=== PATIENT | male | born 1975 | race Two or more races ===

== ENCOUNTER 2021-03-30 08:43 | Emergency (ER) | payer BC ==
[~2021-03-30] VITALS: Ht 180.3 cm; Wt 187.0 kg
[~2021-03-30 08:43] MED LIST: AMOX1TAB61 PO; ASPI-889 PO; ATOR20TA58 PO; AZIT250T6 PO; FURO40TA4 PO; LISI1TAB37 PO; METO25TA4 PO
--- NOTE | 2021-03-30 09:38 | RAD ---
EXAM: CHEST 1 VIEW History: Cough COMPARISON: 02/26/2021 TECHNIQUE: Single portable radiograph of the chest Findings/impression Low lung volumes and technique accentuates heart size and pulmonary vascularity. Moderate cardiomegal y. Mild prominent appearing bilateral interstitial lung markings likely congestive changes similar to prior exam. Patchy bibasilar lung airspace opacity likely atelectasis or infiltrates. Electronically signed by: Jean-Pierre Nguyen MD (03/30/2021 9:36 AM) [id number]
--- NOTE | 2021-03-30 10:18 | PHYS DOC ---
Past History Past Medical History: No Pertinent History Additional Past Medical Histor: CHF POSSIBLY, PER PT Past Surgical History: No Surgical History Alcohol Use: None Adult General Chief Complaint Chief Complaint: COUGH HPI HPI Patient is a 45-year-old male presenting for URI symptoms. Onset was approximately 3 days prior to arrival. Nothing known makes better or worse. He is not vaccinated against COVID-19. Denies fever Review of Systems Review of Systems Fourteen body systems of review of systems have been reviewed. See HPI for pertinent positives and negative responses, other ponce all other systems are negative, non-pertinent or non-contributory Allergies Allergies Allergies Coded Allergies Type Severity Reaction Last Updated Verified No Known Drug Allergies 03/30/21 No Physical Exam Physical Exam General: Appears well, non toxic, and comfortable Skin: Warm, dry. Normal for ethnicity. HEENT: Atraumatic. PERRLA. Rhinorrhea and congestion. Nasal turbinates boggy b/l. Moist mucous membranes. Uvula midline. Maintaining secretions. No phonation changes. Neck: Trachea midline. Normal ROM. No stridor. Respiratory: Normal WOB. CTAB w/o w/r/r. No tachypnea. Cardiovascular: Regular rate and rhythm. Normal peripheral perfusion. Abdomen: Soft. Non tender. No distension. Back: Normal ROM. Musculoskeletal: No swelling or deformity. Neuro: Alert and oriented x 4. MAEE. Lymph: No cervical LAD. Psych: Normal affect and mood. Current Patient Data Vital Signs Vital Signs Date Time Temp Pulse Resp B/P (MAP) Pulse Ox O2 Delivery O2 Flow Rate FiO2 03/30/21 08:45 97.8 78 20 124/73 99 Room Air EKG EKG EKG ordered and interpreted by myself at 0900 hrs. as sinus rhythm at 74 bpm, unremarkable intervals, no axis deviation, no acute ischemic findings, no STEMI Repeat EKG ordered and interpreted by myself at 0950 hrs. as sinus rhythm at 78 bpm, unremarkable intervals, no axis deviation, x2 PVCs seen, no acute ischemic findings, no STEMI Radiology/Procedures Radiology/Procedures EXAM: CHEST 1 VIEW History: Cough COMPARISON: 02/26/2021 TECHNIQUE: Single portable radiograph of the chest Findings/impression Low lung volumes and technique accentuates heart size and pulmonary vascularity. Moderate cardiomegaly. Mild prominent appearing bilateral interstitial lung markings likely congestive changes similar to prior exam. Patchy bibasilar lung airspace opacity likely atelectasis or infiltrates. Electronically signed by: Jean-Pierre Nguyen MD (03/30/2021 9:36 AM) [id number] Heart Score C/O Chest Pain: No Risk Factors: Risk Factors: DM, Current or recent (<one month) smoker, HTN, HLP, family history of CAD, obesity. Risk Scores: Risk Factors: DM, Current or recent (<one month) smoker, HTN, HLP, family history of CAD, obesity. Course & Med Decision Making Course & Med Decision Making ABCs unremarkable. I disclosed entirety of ER findings and discussed most likely diagnosis of viral syndrome, cannot exclude COVID-19 infection in an unvaccinated individual and so patient was swabbed. Other diagnoses were discussed with patient such as ACS, pneumonia, pneumothorax and other potentially life-threatening diagnoses but all deemed less likely causes of patient's presentation. Plan of care discussed at length with need for close outpatient follow-up to review today's ER visit stressed. Strict return precautions were also discussed at length with good understanding verbalized by patient. Patient voiced understanding and agreement with the plan. Patient knows to come back for repeat evaluation if concerning signs or symptoms present prior to outpatient follow-up. Hemodynamically stable, ambulatory and well-appearing at time of disposition. Dragon Disclaimer Dragon Disclaimer This electronic medical record was generated, in whole or in part, using a voice recognition dictation system. Departure Departure: Impression: Primary Impression: Cough Additional Impressions: Chest pain, unspecified Person under investigation for COVID-19 Disposition: HOME / SELF CARE / HOMELESS Condition: STABLE Referrals: OBI RIVERA MD (PCP) Additional Instructions: You were seen for chronic chest pain, cough, and possible infection with COVID- 19. Your physical exam was reassuring. Your chest x-ray was nonconcerning for any emergent or surgical issues as were your x2 EKGs. We tested you for COVID-19 but this test does not come back for 1 to 2 days. In the meantime you need to quarantine yourself at home away from all other individuals, especially those who are elderly or have any other chronic health issues or an immunocompromised status. You should return to the ED if you develop worsening cough, shortness of breath, chest pain, or any other new or concerning symptoms. Alternate Tylenol and ibuprofen as needed for body aches and pain. If your test does come back positive you need to quarantine yourself for 10 days until symptom-free. You should make sure to drink plenty of fluids and get plenty of rest. Please contact your assistant food service manager immediately after ER visit to review visit today and need for close outpatient follow-up to reschedule your stress test Problem Qualifiers SUE OVIEDO DO Mar 30, 2021 10:17
[2021-03-30 10:29] VITALS: BP 130/62
--- NOTE | 2021-03-30 12:55 | EKG ---
[address] [address] Test Date: 2021-03-30 Test Time: 09:37:54 Pat Name: TABBY VALDEZ Department: Room: Gender: M Pick Pack Worker: : 1975 Requested By: SUE OVIEDO Order Number: [id number] Reading MD: Measurements Intervals [place] Rate: 78 P: 50 MS: 168 QRS: 56 QRSD: 94 T: 59 QT: 374 QTc: 430 Interpretive Statements SINUS RHYTHM VENTRICULAR PREMATURE COMPLEX(ES) ATRIAL PREMATURE COMPLEX(ES) ABNORMAL ECG RI6.02 No previous ECG available for comparison
--- NOTE | 2021-03-30 12:56 | EKG ---
[address] [address] Test Date: 2021-03-30 Test Time: 08:50:13 Pat Name: TABBY VALDEZ Department: Room: Gender: M Patent Legal Assistant: : 1975 Requested By: SUE OVIEDO Order Number: [id number] Reading MD: Measurements Intervals [place] Rate: 74 P: 30 NH: 162 QRS: 49 QRSD: 90 T: 62 QT: 360 QTc: 400 Interpretive Statements SINUS RHYTHM NORMAL ECG RI6.02 No previous ECG available for comparison
--- NOTE | 2021-03-30 23:44 | NUR ---
CALLED PT AT 1999 TO TELL PT HE IS POSTIVE FOR COVID AND TO QUARTINTINE FOR 14 DAYS.
== END 2021-03-30 10:58 | disposition home or self-care (01) ==
LOC: ER 08:45 → MERGE 08:45 → ER 10:58
DX: U07.1 COVID-19 (principal); R07.89 Other chest pain
CPT/HCPCS: 71045; 93005; 99285; C9803; U0003

== ENCOUNTER 2021-08-25 18:34 | Emergency (ER) | payer SELFPAY ==
[~2021-08-25] VITALS: Ht 180.3 cm; Wt 156.0 kg
[2021-08-25] MEDS ORDERED: ASPIRIN CHEWABLE 81 MG TABLET. PO ONE (18:45)
--- NOTE | 2021-08-25 18:51 | PHYS DOC ---
Adult General Chief Complaint Chief Complaint: CHEST PAIN HPI HPI Patient is a 46-year-old male with a past medical history of obesity and hypertension who presents to the emergency department with sharp substernal chest pain, 7 out of 10 with no radiation that happened while he was at work about 2 hours ago. States that the episode lasted about 20 minutes and is now resolved. States he had an episode of this about 1 to 2 years ago and had a normal stress test. Denies any recent traumas, travels, illnesses, fevers, shortness of breath, dyspnea on exertion, orthopnea, PND or edema. Denies any abdominal pain, nausea, vomiting, diarrhea, known ill contacts, Covid/flu/cold symptoms. States he is eating and drinking normally for him. States he is making urine and stool normally for him with no blood in either. Review of Systems Review of Systems Review of systems otherwise unremarkable except noted in HPI Allergies Allergies Allergies Coded Allergies Type Severity Reaction Last Updated Verified No Known Drug Allergies 03/31/21 No Physical Exam Physical Exam Constitutional: Well developed, well nourished, no acute distress, non-toxic appearance. [] HENT: Normocephalic, atraumatic, bilateral external ears normal, oropharynx moist, no oral exudates, nose normal. [] Eyes: conjunctiva normal, no discharge. [] Neck: Normal range of motion, no tenderness, supple, no stridor. [] Cardiovascular:Heart rate regular rhythm, no murmur [] Lungs & Thorax: Bilateral breath sounds clear to auscultation [] Abdomen: soft, no tenderness, no masses, no pulsatile masses. [] Skin: Warm, dry, no erythema, no rash. [] Back: No tenderness, Extremities: No tenderness, no cyanosis, no clubbing, ROM intact, no edema. [] Neurologic: Alert and oriented X 3, normal motor function, normal sensory function, no focal deficits noted. [] Psychologic: Affect normal, judgement normal, mood normal. [] EKG EKG [] Radiology/Procedures Radiology/Procedures []dy: XR CHEST 1V Indication: Chest pain. Comparison: 03/30/2021 Findings: The cardiomediastinal silhouette is at the upper limits of normal for size but accentuated by AP technique. Mildly plethoric central vasculature. Scattered linear/reticular densities on both the right and left. No layering effusion, lobar consolidation or pneumothorax. Impression: Findings as outlined above which are nonspecific but could represent interstitial edema or a mild infectious process. Electronically signed by: AKOSUA MARTINEZ MD (08/25/2021 7:11 PM) [facility] Heart Score C/O Chest Pain: Yes HEART Score for Chest Pain: HEART Score for Chest Pain Response (Comments) Value History Slighlty/Non-Suspicious 0 Age >45 - < 65 1 Risk Factors 1 or 2 Risk Factors 1 Troponin < Normal Limit 0 Total 2 Risk Factors: Risk Factors: DM, Current or recent (<one month) smoker, HTN, HLP, family history of CAD, obesity. Risk Scores: Risk Factors: DM, Current or recent (<one month) smoker, HTN, HLP, family history of CAD, obesity. Course & Med Decision Making Course & Med Decision Making Patient is a 46-year-old male who presents with sharp, substernal chest pain episode of approximately 20 minutes that is now resolved Vital signs not concerning. Physical exam noted above. 324 of aspirin given. Laboratory [place] not concerning. EKG with a rate of 70, QRS of 98, QTc of 407, no STEMI. Troponin normal. Chest x-ray with subtle findings with possibility of infection. Started on antibiotics in the emergency department for pneumonia. Covid swab pending. Patient asymptomatic with a heart score of 2. Discussed all findings with patient. Discussed symptom management at home. Given Covid education and discussed quarantine. Advised to follow-up in the morning with primary care physician. Gave return precautions to the ED. Patient grateful, verbalized understanding and agreed with plan of discharge. [] Dragon Disclaimer Dragon Disclaimer This electronic medical record was generated, in whole or in part, using a voice recognition dictation system. Departure Departure: Impression: Primary Impression: Chest pain Disposition: HOME / SELF CARE / HOMELESS Condition: GOOD Referrals: OBI RIVERA MD (PCP) Patient Instructions: Chest Pain (Nonspecific), Pneumonia, Adult Additional Instructions: Thank you for coming into the emergency department today and allowing us to take care of you. Please read the attached information carefully to go over the things we discussed. Is very important you follow-up in the morning with your primary care physician to discuss your ED visit and set up follow-up as soon as possible for reevaluation and discussions of further need for evaluation, treatment and stress test as well as consultation with a energy specialist because although your evaluation today was reassuring it does not mean there is not something that is going on that needs to be addressed. Please take your antibiotics as prescribed and until gone for your pneumonia. You can take Tylenol, ibuprofen and [id number] cough medicine as needed and tolerated. Please come back to the emergency department with new or concerning symptoms as discussed. You have been tested for or diagnosed with COVID-19. It is an infection caused by a new type of coronavirus. COVID-19 will cause cold-like or mild flu symptoms in most. It can cause more severe symptoms like problems breathing in some. There is no treatment for COVID-19. The body will clear the infection over time. Self-care will help to ease discomfort. Steps to Take: Self-Care Rest as needed. Healthy habits may help you feel better. Steps include: Choose healthy foods including fruits and vegetables. Drink water throughout the day. Get plenty of sleep each night. If you smoke, try to quit. It may ease breathing. Avoid alcohol. Keep Others Healthy The virus can spread to others. Droplets are released every time you sneeze or cough. The droplets can get into the mouth, nose, or eyes of people near you and lead to infection. To lower the chances of spreading COVID-19 to others: Stay at home until your doctor has said it is safe to leave. If you tested positive this will mean staying isolated until both of the following are true: At least 7 days have passed since the start of illness. You are free of fever for at least 72 hours without the use of medicine. During this time: - Avoid public areas, events, or transportation. Do not return to work or school until your doctor has said it is safe to do so. - Call ahead if you need to go to a medical center. Let them know you may have COVID-19. It will help them guide you where to go. They may also ask you to wear a facemask when you come to the office. - If you call for emergency medical services, let them know you may have COVID- 19. While at home: - Try to avoid close contact with others. Stay about 6 feet away. - If possible, spend most of your time in a separate room from others. - Use a face mask if you will be in close contact with others such as sharing a room or vehicle. - Have someone wipe down common surfaces in the home. Use household liner man every day on areas like doorknobs, counters, or sinks. - Cough or sneeze into a tissue. Throw the tissue away right after use. If a tissue is not available, cough or sneeze into your elbow. - Wash your hands often. Wash them after sneezing or coughing. Use soap and water and wash for at least 20 seconds. Alcohol based hand glove cleaner can be used if soap and water is not available. - Do not prepare food for others. Avoid sharing personal items like forks, spoons, or toothbrushes. - Avoid close contact with pets while you are sick. There is no evidence of the virus passing to pets. This is a safety step until more is known about this virus. Isolation can be frustrating. Social interaction can help. Keep in touch with friends and family through phone and tech options. You can still interact with others in yo ur home, just keep a safe distance of about 6 feet. Follow-up: Your doctors office will check in with you to see if there are any changes in your health. You may be asked to keep track of symptoms to share with them. They will also let you know when you are clear to be in public again. Problems to Look Out For: Contact your doctor if your recovery is not going as you expect. Get emergency care if you have problems such as: - Trouble breathing - Nonstop chest pain or pressure - Changes in awareness, confusion, or problems waking - Lips or face have bluish color - Worsening of symptoms If you think you have an emergency, call for emergency medical services right away. As taken from [facility] Amoxicillin/Potassium Clav (AUGMENTIN 875-125 TABLET) 1 Each Tablet 1 TAB PO BID for PNA for 7 Days, #13 TAB 0 Refills Prov: TERRI GALVIN MD 08/25/21 TERRI GALVIN MD Aug 25, 2021 18:51
--- NOTE | 2021-08-25 19:13 | RAD ---
Study: XR CHEST 1V Indication: Chest pain. Comparison: 03/30/2021 Findings: The cardiomediastinal silhouette is at the upper limits of normal for size but accentuated by AP tech nique. Mildly plethoric central vasculature. Scattered linear/reticular densities on both the right a nd left. No layering effusion, lobar consolidation or pneumothorax. Impression: Findings as outlined above which are nonspecific but could represent interstitial edema or a mild inf ectious process. Electronically signed by: AKOSUA MARTINEZ MD (08/25/2021 7:11 PM) [facility]
--- NOTE | 2021-08-25 19:21 | EKG ---
[address] [address] Test Date: 2021-08-25 Test Time: 18:51:11 Pat Name: TABBY VALDEZ Department: Room: Gender: M Warehouseman: MAEGAN : 1975 Requested By: TERRI GALVIN Order Number: [id number] Reading MD: Ryland Ayala Measurements Intervals [place] Rate: 70 P: 34 OR: 168 QRS: 30 QRSD: 98 T: 40 QT: 374 QTc: 407 Interpretive Statements SINUS RHYTHM NORMAL ECG RI6.02 No previous ECG available for comparison Electronically Signed On 08-26-2021 12:49:47 LOW HEEL BUILDER by Ryland Ayala
[2021-08-25 19:50] LABS: BASO # 0.1 x10^3/uL (0.0-0.2); BASO % 1 % (0-3); EOS # 0.3 x10^3/uL (0.0-0.7); EOS % 3 % (0-3); HEMATOCRIT 44.5 % (39.0-53.0); HEMOGLOBIN 15.2 g/dL (13.0-17.5); LYMPH # 2.3 x10^3/uL (1.0-4.8); LYMPH % 24 % (24-48); MEAN CORPUSCULAR HEMOGLOBIN 30 pg (25-35); MEAN CORPUSCULAR HGB CONC 34 g/dL (31-37); MEAN CORPUSCULAR VOLUME 88 fL (79-100); MONO # 0.9 x10^3/uL (0.0-1.1); MONO % 9 % (0-9); NEUT # 6.3 x10^3uL (1.8-7.7); NEUT % 64 % (31-73); PLATELET COUNT 272 x10^3/uL (140-400); RED BLOOD COUNT 5.09 x10^6/uL (4.30-5.70); RED CELL DISTRIBUTION WIDTH 13.5 % (11.5-14.5); WHITE BLOOD COUNT 9.9 x10^3/uL (4.0-11.0)
[2021-08-25 19:55] LABS: CALCIUM 8.9 mg/dL (8.5-10.1); CREATININE 0.7 mg/dL (0.7-1.3); POTASSIUM 4.2 mmol/L (3.5-5.1)
[2021-08-25] MEDS ORDERED: AMOX1TAB61 PO (20:12)
[2021-08-25] MEDS ORDERED: AMOXICILLIN/K CLAV 875/125MG TABLET. PO ONE (20:15)
[2021-08-25 20:30] VITALS: BP 114/65
== END 2021-08-25 20:30 | disposition home or self-care (01) ==
LOC: ER 18:34
DX: R07.2 Precordial pain (principal); I10 Essential (primary) hypertension; E66.9 Obesity, unspecified; Z68.42 Body mass index [BMI] 45.0-49.9, adult
CPT/HCPCS: 36415; 71045; 80048; 84484; 85025; 93005; 99285